=== PATIENT | female | born 1960 | race Caucasian/White ===

== ENCOUNTER → 2024-02-03 12:24 | Outpatient (REF) | payer OTHER, SELFPAY | LOC: RAD 12:24 | PROVIDERS: ATTENDING PHYSICIAN Student in an Organized Health Care Education/Training Program | DX: M25.561 Pain in right knee (principal) | CPT/HCPCS: 73564 ==

== ENCOUNTER → 2024-07-17 08:09 | Outpatient (REF) | payer BC, SELFPAY | LOC: RAD 08:09 | PROVIDERS: ATTENDING PHYSICIAN Family Medicine | DX: M79.641 Pain in right hand (principal) | CPT/HCPCS: 73130 ==

== ENCOUNTER 2024-08-25 16:54 | Outpatient (RCR) | payer BC, SELFPAY | END 2024-08-25 23:59 | disposition home or self-care (01) | LOC: ROT 16:54 | PROVIDERS: ATTENDING PHYSICIAN Family Medicine | DX: M25.541 Pain in joints of right hand (principal); Z73.6 Limitation of activities due to disability | CPT/HCPCS: 97018; 97035; 97166; 97535 ==

== ENCOUNTER → 2024-10-06 08:14 | Outpatient (REF) | payer BC, SELFPAY | LOC: WDC 08:14 | PROVIDERS: ATTENDING PHYSICIAN Nurse Practitioner Family; FAMILY PHYSICIAN Student in an Organized Health Care Education/Training Program | DX: Z12.31 Encounter for screening mammogram for malignant neoplasm of breast (principal) | CPT/HCPCS: 77063; 77067 ==

== ENCOUNTER → 2024-10-08 07:59 | Outpatient (REF) | payer BC, SELFPAY | LOC: RAD 07:59 | PROVIDERS: ATTENDING PHYSICIAN Student in an Organized Health Care Education/Training Program | DX: Z13.820 Encounter for screening for osteoporosis (principal) | CPT/HCPCS: 77080 ==

== ENCOUNTER → 2024-10-28 06:17 | Day surgery (SDC) | payer BC, SELFPAY | LOC: GI 06:17 | PROVIDERS: ATTENDING PHYSICIAN Internal Medicine | DX: Z12.11 Encounter for screening for malignant neoplasm of colon (principal); D12.3 Benign neoplasm of transverse colon | CPT/HCPCS: 45380; 88305 ==

== ENCOUNTER → 2025-05-17 08:10 | Outpatient (REF) | payer SELFPAY | LOC: HWRAD 08:10 | PROVIDERS: ATTENDING PHYSICIAN Student in an Organized Health Care Education/Training Program | DX: Z13.6 Encounter for screening for cardiovascular disorders (principal) | CPT/HCPCS: 75571 ==

== ENCOUNTER → 2025-10-08 07:31 | Outpatient (REF) | payer BC, SELFPAY | LOC: WDC 07:31 | PROVIDERS: ATTENDING PHYSICIAN Obstetrics & Gynecology | DX: Z12.31 Encounter for screening mammogram for malignant neoplasm of breast (principal) | CPT/HCPCS: 77063; 77067 ==

== ENCOUNTER → 2025-10-26 08:33 | Outpatient (REF) | payer MEDICARE, OTHER, SELFPAY | LOC: WDC 08:33 | PROVIDERS: ATTENDING PHYSICIAN Obstetrics & Gynecology | DX: R92.8 Other abnormal and inconclusive findings on diagnostic imaging of breast (principal) | CPT/HCPCS: 76642 ==